=== PATIENT | female | born 1990 | race Caucasian/White ===

== ENCOUNTER → 2018-01-12 | Outpatient (CLI) | payer OTHER | END | disposition home or self-care (01) | LOC: C.LAB1850 11:13 | PROVIDERS: ATTEND Obstetrics & Gynecology | DX: Z31.69 Encounter for other general counseling and advice on procreation (principal) ==

== ENCOUNTER 2019-01-05 19:43 | Inpatient (IN) ==
[2019-01-05] MEDS ORDERED: OXYTOCIN 30 UNITS/500 ML BAG IV PRN ×2 (20:32→22:47)
[2019-01-05] MEDS ORDERED: LACTATED RINGER'S 1,000 ML IV PRN ×2 (20:32→22:47)
--- NOTE | 2019-01-05 20:45 | History & Physical Report ---
Date of Service January 05, 2019 Assessment & Plan (1) 40 weeks gestation of : Admit to L&D, labs/IV/EFM. OK for epidural when she desires. She would like to walk the halls to see if labor sets in, but if not is agreeable to pitocin after about 2 hours. History of Present Illness Chief Complaint: SROM Primary Care Provider: NO PCP 28yo @ 40 4/7 presents with leaking of mucus-like discharge all day today. Presents for r/o rupture of membranes. No vaginal bleeding, not really feeling ctx. + movement. uncomplicated. Allergies Allergy/AdvReac Type Severity Reaction Status Date / Time No Known Allergies Allergy Verified 01/05/19 20:01 Home Medications Home Medications Medication Instructions Recorded Confirmed Type 1 tab DAILY 01/05/19 01/05/19 History diphenhydramine HCl [Unisom 1 tab PO DAILY 01/05/19 01/05/19 History Sleepgels] Patient History Medical History Chilblain [place] teeth removed Social History Preferred Language: Tajik Beliefs That Will Affect Care: None marital status: Current Living Situation: Spouse Other Information That Helps Us Care for You: No Feels Safe at Home: Yes Safety Concerns: Feels Safe At This Time Smoking Status: Never smoker Hx Alcohol Use: No Hx Substance Use: No Review of Systems All systems reviewed & are unremarkable except as noted in HPI & below Physical Exam Vital Signs (Past 24 Hours): Last Vital Signs Temp 37.1 C 01/05/19 20:10 Pulse 94 H 01/05/19 20:10 Resp 18 01/05/19 20:10 BP 134/68 01/05/19 20:10 Physical Exam: Gen: AAOx3 NAD CV: RRR L: CTAB Abd: soft, gravid, NTTP Ext: no edema SVE 2-3/80/-2 Sterile spec exam: SROM for copious clear fluid upon insertion of speculum FHT Cat 1, [place] Q 3-4 min (not feeling these)
[2019-01-05 20:56] LABS: Hematocrit (blood only) 33.4 % (37-47); Hemoglobin 11.1 g/dL (12.0-16.0); Mean Corpuscular Volume 87.9 fL (80-100); Mean Platelet Volume 11.6 fL (7.4-10.4); Platelet Count 160 K/uL (130-400); RDW Coefficient of Variation 14.5 % (11.5-14.5); RDW Standard Deviation 46.8 fL (36.4-46.3); White Blood Count 12.84 K/uL (4.8-10.8)
[2019-01-05 20:59] LABS: Mean Corpuscular Hgb Conc 33.2 g/dL (32-36)
--- NOTE | 2019-01-05 22:49 | Obstetrical Progress Note ---
Date of Service January 05, 2019 Subjective Patient has walked the hallways for about 2 hours, not feeling much increase in pressure or ctx. FHT Cat 1 [place] Q 2-3 min SVE 3-4/90/-2 Discussed with patient - will start pitocin to augment labor. She is agreeable to this plan. OK for epidural when she desires. Physical Exam Vital Signs (Past 24 Hours): Last Vital Signs Temp 37.1 C 01/05/19 20:10 Pulse 94 H 01/05/19 20:10 Resp 18 01/05/19 20:10 BP 134/68 01/05/19 20:10
[2019-01-06] MEDS ORDERED: BUPIVACAINE 0.25% 30 ML VIAL ONE (01:54)
[2019-01-06] MEDS ORDERED: ePHEDrine sulfate 50 MG/ML AMP ONE (01:55)
[2019-01-06] MEDS ORDERED: fentaNYL 2MCG/ML ROPIV 1.25MG/ML 100 ML BAG EPI ONE (01:55)
[2019-01-06] MEDS ORDERED: fentaNYL citrate 100 MCG/2 ML VIAL ONE ×2 (01:55→16:44)
--- NOTE | 2019-01-06 02:05 | Anesthesiology Consultation ---
Date of Service January 06, 2019 Assessment & Plan Chart Review Chart Review: Patient NOT seen in Pre Admission Testing and Acceptable Risk for Labor Epidural Consults Requested none ASA ASA2 Proposed Anesthesia Anesthesia Type: Labor Epidural Risk / Benefits Reviewed With: PT / POA / Parent / Guardian, Accepts Plan and Informed Consent Obtained NPO Date Last Intake of Fluids: 01/05/19 Time Last Intake of Fluids: 18:30 Date Last Intake of Solids: 01/05/19 Time Last Intake of Solids: 18:30 History Height/Weight Height: 5 ft 6 in Weight: 99.159 kg Allergies Allergy/AdvReac Type Severity Reaction Status Date / Time No Known Allergies Allergy Verified 01/05/19 20:01 Medications Home Medications Medication Instructions Recorded Confirmed Last Taken 1 tab DAILY 01/05/19 01/05/19 01/04/19 20:00 diphenhydramine HCl [Unisom 1 tab PO DAILY 01/05/19 01/05/19 01/04/19 20:00 Sleepgels] Active Medications Generic Name Dose Route Start Last Admin Trade Name Freq PRN Reason Stop Dose Admin Lactated Ringer's 1,000 mls @ 999 mls/hr 01/05/19 20:32 01/05/19 23:15 Lr IV 02/04/19 20:31 125 mls/hr .Q1H1M PRN Infusion (Pre-Anesthesia) Oxytocin 30 units in 500 mls @ 5 mls/hr 01/05/19 22:47 01/06/19 01:00 Pitocin IV 01/07/19 22:46 0.3 units/hr .Q24H PRN 5 mls/hr Labor Induction/Augmentation Titration Protocol 0.3 UNITS/HR Past Medical History Medical History Anemia Chilblain GERD (gastroesophageal reflux disease) Obesity [place] teeth removed Past Anesthesia History No Hx of Anesthesia Complications and No Family Hx of Anesthesia Complications History of PONV No Motion Sickness Screening History of Motion Sickness: No Social History Smoking Status: Never smoker Hx Alcohol Use: No Hx Substance Use: No Exercise / Class Metabolic Activity II 4-5 Yardwork/Stairs/Walk up hill Physical Exam Vital Signs Last Vital Signs Temp 37.0 C 01/05/19 23:44 Pulse 91 H 01/06/19 01:58 Resp 18 01/05/19 20:10 BP 126/71 01/06/19 01:57 Pulse Ox 99 01/06/19 01:58 Constitutional + obese ENMT Mouth: no dentition abnormality Neck normal visual inspection and trachea midline; neck extension not limited Respiratory normal respiratory effort Auscultation: lungs clear to auscultation bilaterally Cardiovascular Rate/Rhythm: regular rate and regular rhythm Heart Sounds: no murmur Musculoskeletal Spine: lumbar spine normal to inspection; normal cervical ROM Neurologic moves all extremities Motor/Sensory: no sensory deficit Psychiatric Orientation: alert and oriented x 3 Testing Laboratory Results 01/05/19 20:49
[2019-01-06] MEDS ORDERED: ePHEDrine sulfate 50 MG/ML AMP IV PRN (02:45)
[2019-01-06] MEDS ORDERED: LACTATED RINGER'S 1,000 ML IV PRN (02:45)
[2019-01-06] MEDS ORDERED: NALOXONE HCL 0.4 MG/1 ML VIAL/CARP IV PRN (02:45)
[2019-01-06] MEDS ORDERED: PROMETHAZINE HCL 25 MG in SODIUM CHLORIDE 0.9% 50 ML IV PRN (02:45)
[2019-01-06] MEDS ORDERED: NALOXONE HCL 1 MG in SODIUM CHLORIDE 0.9% 1000ML 1,000 ML IV PRN (02:45)
[2019-01-06] MEDS ORDERED: DiphenhydrAMINE HCL 50 MG/ML VIAL IV PRN (02:45)
[2019-01-06] MEDS ORDERED: ONDANSETRON INJ 2 MG/ML 2 ML VIAL IV PRN (02:45)
[2019-01-06] MEDS ORDERED: NALBUPHINE HCL INJ 10 MG/ML AMP IV PRN (02:45)
[2019-01-06] MEDS: fentaNYL 2MCG/ML ROPIV 1.25MG/ML 100 ML BAG EPI PRN ×5 (06:28→16:01)
[2019-01-06] MEDS ORDERED: Nursing to Pharmacy Communication ONE (06:38)
[2019-01-06] MEDS: LACTATED RINGER'S 1,000 ML IV SCH ×2 (07:32→13:05)
--- NOTE | 2019-01-06 10:47 | Obstetrical Progress Note ---
Date of Service January 06, 2019 Assessment & Plan (1) 40 weeks gestation of : 26yo G1 at 40.5. Labor - Cat 1 - Labor: progressing. Continue pitocin - Vitals wnl - Pain controlled with epidural Subjective Patient doing well Physical Exam Vital Signs (Past 24 Hours): Last Vital Signs Temp 37.1 C 01/06/19 09:33 Pulse 96 H 01/06/19 10:39 Resp 20 01/06/19 09:33 BP 126/94 01/06/19 10:12 Pulse Ox 94 01/06/19 10:39 Genitourinary: Manual OB Exam: + cervical dilation 9 cm, + cervical effacement 100% and + station + 1 OB Exam Monitor Tracing: + category I
[2019-01-06] MEDS ORDERED: AMPICILLIN 2,000 MG in SODIUM CHLOR 0.9% AD-VAN 100 ML IV ONE (15:10)
--- NOTE | 2019-01-06 15:19 | Obstetrical Progress Note ---
Date of Service January 06, 2019 Assessment & Plan (1) 40 weeks gestation of : (2) PROM (premature rupture of membranes): will begin 2nd stage. apparently pushed with nurse and too numb, epidural rate decreased (3) Chorioamnionitis: since my exam temp >38.0, will treat as presumed chorio with amp and gent. per nurse pt thought she was rupture yesterday at 930am, was only seen and admitted as rom 12hr later. see admitting md note. Subjective pt seen as felt some urge to push Physical Exam Vital Signs (Past 24 Hours): Last Vital Signs Temp 38.1 C H 01/06/19 14:53 Pulse 125 H 01/06/19 15:13 Resp 20 01/06/19 13:43 BP 124/60 01/06/19 14:12 Pulse Ox 100 01/06/19 15:13 Constitutional: WD/WN, vitals as above Genitourinary: Manual OB Exam: + cervical dilation 10 cm, + cervical effacement 100% and + station + 2 OB Exam Monitor Tracing: + external FHT monitor used (160 mod variability, +accels), + external uterine monitor used (q2-3), + category I and + normal FHT variability
[2019-01-06] MEDS ORDERED: ACETAMINOPHEN 325 MG TAB PO STA (15:32)
[2019-01-06] MEDS ORDERED: ACETAMINOPHEN 325 MG TAB ONE (15:34)
[2019-01-06] MEDS ORDERED: GENTAMICIN CONSULT ACTIVE PRN (16:41)
[2019-01-06] MEDS ORDERED: LIDOCAINE HCL 2% MPF (LOCAL) 5 ML VIAL INFIL ONE (16:45)
--- NOTE | 2019-01-06 16:58 | Anesthesiology Progress Note ---
Date of Service January 06, 2019 Pt in active labor with epidural infusion. Fully dilated and having pain with contractions. Asked by claims counsel to increase analgesia. [id number] 1% plus fentanyl 100mcg given to epidural catheter. VSS prior to and after epidural bolus. Physical Exam Vital Signs Last Vital Signs Temp 37.7 C H 01/06/19 16:15 Pulse 114 H 01/06/19 16:49 Resp 22 01/06/19 16:15 BP 124/66 01/06/19 16:15 Pulse Ox 92 01/06/19 16:49 Results & Data Medications Administered Ephedrine Sulfate (Ephedrine Sulfate) 10 mg IV Q5M PRN PRN Reason: Hypotension Stop: 01/07/19 02:44 Last Admin: 01/06/19 02:35 Dose: 10 mg Documented by: [id number] Lactated Ringer's (Lr) 1,000 mls @ 999 mls/hr IV .Q1H1M PRN PRN Reason: (Pre-Anesthesia) Stop: 02/04/19 20:31 Last Infusion: 01/05/19 23:15 Dose: 125 mls/hr Documented by: [id number] Admin: 01/05/19 22:51 Dose: 999 mls/hr Documented by: [id number] Lactated Ringer's (Lr) 1,000 mls @ 125 mls/hr IV .Q8H ROSELYN Stop: 01/07/19 20:44 Last Admin: 01/06/19 13:05 Dose: 125 mls/hr Documented by: [id number] Infusion: 01/06/19 13:05 Dose: 125 mls/hr Documented by: [id number] Admin: 01/06/19 07:32 Dose: 125 mls/hr Documented by: [id number] Oxytocin (Pitocin) 30 units in 500 mls @ 13 mls/hr IV .Q24H PRN; Protocol PRN Reason: Labor Induction/Augmentation Stop: 01/07/19 22:46 Last Titration: 01/06/19 15:23 Dose: 0.78 units/hr, 13 mls/hr Documented by: [id number] Titration: 01/06/19 13:47 Dose: 0.66 units/hr, 11 mls/hr Documented by: [id number] Titration: 01/06/19 07:09 Dose: 0.54 units/hr, 9 mls/hr Documented by: [id number] Titration: 01/06/19 03:30 Dose: 0.54 units/hr, 9 mls/hr Documented by: [id number] Titration: 01/06/19 03:00 Dose: 0.42 units/hr, 7 mls/hr Documented by: [id number] Titration: 01/06/19 01:00 Dose: 0.3 units/hr, 5 mls/hr Documented by: [id number] Titration: 01/06/19 00:30 Dose: 0.18 units/hr, 3 mls/hr Documented by: [id number] Admin: 01/05/19 23:59 Dose: 0.06 units/hr, 1 mls/hr Documented by: [id number] Cosigned by: [id number] Ropivacaine (Epidural (L&D)) 100 ml EPI PRN PRN; Protocol PRN Reason: Pain R/T Labor Stop: 01/07/19 02:44 Last Admin: 01/06/19 16:01 Dose: 195 ml Documented by: [id number] Cosigned by: [id number] Admin: 01/06/19 14:51 Dose: 100 ml Documented by: [id number] Cosigned by: [id number] Admin: 01/06/19 10:00 Dose: 100 ml Documented by: [id number] Cosigned by: [id number] Admin: 01/06/19 07:05 Dose: 56 ml Documented by: [id number] Cosigned by: [id number] Admin: 01/06/19 06:28 Dose: 51.7 ml Documented by: [id number] Cosigned by: [id number]
[2019-01-06] MEDS ORDERED: GENTAMICIN SULFATE 150 MG in DEXTROSE 5% 100 ML IV ONE (17:00)
[2019-01-06] MEDS ORDERED: METHYLERGONOVINE MALEATE 0.2 MG/ML AMP ONE (18:50)
[2019-01-06] MEDS ORDERED: miSOPROStol 200 MCG TAB ONE (18:52)
[2019-01-06] MEDS ORDERED: HYDROCORTISONE ACETATE 25 MG SUPP PR PRN (19:02)
[2019-01-06] MEDS ORDERED: BENZOCAINE 20% AER SPR 82.5 GM CAN EXT PRN (19:02)
[2019-01-06] MEDS ORDERED: OXYTOCIN 30 UNITS/500 ML BAG IV PRN (19:02)
[2019-01-06] MEDS ORDERED: SUPERCREAM 0.870% 15 GM JAR EXT PRN (19:02)
[2019-01-06] MEDS ORDERED: ACETAMINOPHEN 325 MG TAB PO PRN (19:02)
[2019-01-06] MEDS ORDERED: DIPHTHERIA/TETANUS/PERTUSSIS 0.5 ML SYR/VIAL IM ONE (19:02)
[2019-01-06] MEDS ORDERED: miSOPROStol 200 MCG TAB PR ONE (19:02)
[2019-01-06] MEDS ORDERED: BISACODYL 10 MG SUPP PR PRN (19:02)
[2019-01-06 19:23] LABS: Base Excess Cord Venous Blood -2.9 mEq/L (-7.7-1.9); Cord Venous Blood HCO3 22 mmol/L (18.4-26.8); Cord Venous Blood PCO2 37 mmHg (30.4-57.2); Cord Venous Blood PO2 33 mmHg (14.1-43.3); Cord Venous Blood pH 7.38 (7.20-7.44)
[2019-01-06 19:33] LABS: Base Excess Cord Arterial Bld -3.2 mEq/L (-9-1.8); CO2 Cord Arterial Blood 36 mmHg (39.1-73.5); HCO3 Cord Arterial Blood 21 mmol/L (19.7-28.5); pH Cord Arterial Blood 7.38 (7.1-7.38)
--- NOTE | 2019-01-06 21:28 | Anesthesia Procedure Note ---
Date of Service January 06, 2019 Anesthesia Post Epidural Note Vital Signs Vital Signs: Temp Pulse Resp BP Pulse Ox 36.7 C 105 H 18 104/59 L 97 01/06/19 19:12 01/06/19 21:07 01/06/19 20:07 01/06/19 21:07 01/06/19 18:19 Pain Intensity Upper Abdomen: Pain Intensity: 3 Notes Mental Status: alert / awake / arousable and participated in evaluation Nausea / Vomiting: adequately controlled Pain: adequately controlled Airway Patency, RR, SpO2: stable & adequate BP & HR: stable & adequate Hydration State: stable & adequate Neuraxial Anesthesia: was administered and sensory block is resolving Anesthetic Complications: no major complications apparent and Pt Satisfied with anesthetic care Epidural: Removed without complications and With tip intact
--- NOTE | 2019-01-06 22:12 | Delivery Summary ---
DATE OF OPERATION: 01/06/2019 PROCEDURE: Normal spontaneous vaginal delivery with bilateral periurethral laceration repairs. SURGEON: Kofi Calhoun MD PREOPERATIVE DIAGNOSES: 1. Single intrauterine at 40 weeks 4 days gestational age. 2. Spontaneous rupture of membranes. POSTOPERATIVE DIAGNOSES: 1. Single intrauterine at 40 weeks 4 days gestational age. 2. Spontaneous rupture of membranes. 3. Chorioamnionitis, and delivered. ESTIMATED BLOOD LOSS: 400 mL. DRAINS: Straight cath after delivery. URINE OUTPUT: 500 mL via straight catheterization. COMPLICATIONS: None. FINDINGS: Viable female infant with Apgars of 7 and 9 at 1 and 5 minutes respectively and weight pending. INDICATIONS: Ms. Jaime is a 28-year-old G1, P0 at 40 weeks 5 days gestational age, who presented with rupture of membranes on morning of admission. Upon discussion later, the patient does report some discharge earlier at 9:00 a.m. the previous day. However, she is unsure if she was ruptured at that time. The patient was initially found to be 2 cm dilated, 80% effaced, and -2 station. The patient was requested a 2-hour ashu period to allow for spontaneous labor. However, upon reevaluation, the patient was noted to have no significant progression and was started on oxytocin per regular protocol. The patient later received an epidural for anesthesia. The patient developed a maternal fever with tachycardia and was diagnosed with chorioamnionitis and started on antibiotics soon after she was found to be complete. The patient then began to push, then pushed for a little over 3 hours before delivery. DESCRIPTION OF PROCEDURE: The patient progressed to 10 cm dilated, 100% effaced, +2 station, pushed over intact perineum with epidural anesthesia and delivered a viable female infant with weight and Apgars as noted above. Head of delivered in ALEJANDRINA position restituted to left transverse. No nuchal cord was noted. The anterior shoulder was delivered easily. There was some difficulty getting the posterior shoulder around the perineum; however, this delivery was effected with sweeping the posterior shoulder. The remainder of the body and shoulders quickly followed. was delivered to the maternal abdomen, was noted to be vigorous soon after delivery: A 1-minute delayed cord clamping was initiated where the cord was doubly clamped and cut. The remained on the maternal abdomen. Attention was then turned to delivery. The placenta was delivered intact with 3-vessel cord with uterine massage and cord traction. There was noted to be a cord avulsion; however, the placenta was noted to be largely in the vagina at that time with only a small portion still attached to the uterus. That external portion within the vagina was able to be grasped and delivery of placenta was able to be achieved without manual extraction. Attention was then turned to the perineum, vagina and cervix for inspection. There was noted to be bilateral periurethral lacerations which were repaired with 3-0 Vicryl with interrupted stitch. Needle, sponge, and instrument counts were correct at the completion of the case. I attest to the content of the Intraoperative Record and any orders documented therein. Any exceptions are noted below. MTDD
[2019-01-06] MEDS: IBUPROFEN 600 MG TAB PO PRN (22:14)
[2019-01-07] MEDS: IBUPROFEN 600 MG TAB PO PRN ×5 (03:01→20:36)
--- NOTE | 2019-01-07 07:16 | Obstetrical Progress Note ---
Date of Service <Favio DO Leonid - Last Filed: 01/07/19 07:16> January 07, 2019 Assessment & Plan <Favio DO Leonid - Last Filed: 01/07/19 07:16> (1) Spontaneous vaginal delivery: 28 y/o with at 40.5 weeks with bilat periurethral tears - continue with post- care (2) 40 weeks gestation of : (3) PROM (premature rupture of membranes): (4) Chorioamnionitis: temp >38.0, treated as presumed chorio with amp and gent. per nurse pt thought she was rupture yesterday at 930am; with possible rom and seen here for admission 12 hours s/p rom 12hr later Subjective <Favio DO Leonid - Last Filed: 01/07/19 07:16> Ambulation: ambulating normally Voiding: no voiding problems Passing Gas:: Yes Diet Tolerance:: regular diet Lochia:: Small Feeding Type:: breast feeding Karen states she is doing well today, no acute events overnight. She denies fever, chills, chest pains, shortness of breath, nausea, vomiting. Physical Exam <Favio DO Leonid - Last Filed: 01/07/19 07:16> Vital Signs (Past 24 Hours) Last Vital Signs Temp 36.8 C 01/07/19 03:30 Pulse 86 01/07/19 03:30 Resp 20 01/07/19 03:30 BP 98/55 L 01/07/19 03:30 Pulse Ox 100 01/06/19 23:35 Constitutional WD/WN, vitals as above cooperative and comfortable Eyes + anicteric sclerae and EOM intact bilaterally Neck normal visual inspection and trachea midline Respiratory normal respiratory effort, lungs clear to auscultation Cardiovascular Rate/Rhythm: regular rate and regular rhythm Heart Sounds: no murmur Gastrointestinal (Abdomen) Percussion/Palpation: abdomen nontender uterine fundus if firm, non-tender, 2cm inferior to umbilicus Musculoskeletal Head/Neck/Chest: normocephalic and head atraumatic Skin no rashes, warm and dry Neurologic moves all extremities and awake Psychiatric A+Ox3, euthymic affect Results & Data <Favio Jaquez DO - Last Filed: 01/07/19 07:16> Laboratory Results Laboratory Results - last 24 hr 01/06/19 01/06/19 18:20 18:20 Cord ABG pH 7.38 Cord ABG pCO2 36 L Cord ABG pO2 34.0 H Cord ABG HCO3 21 Cord ABG Base Excess -3.2 Cord ABG O2 Sat 69.0 H Cord VBG pH 7.38 Cord VBG pCO2 37 Cord VBG pO2 33 Cord VBG HCO3 22 Cord VBG Base Excess -2.9 Cord VBG O2 Sat 69.0 H Barometric Pressure 732.5 732.4 Blood Gas Comments STYLES INFANT A Medications Administered Benzocaine (Dermoplast Pain Relieving [place]) 1 appln EXT PRN PRN PRN Reason: Perineal Discomfort Stop: 02/05/19 19:01 Last Admin: 01/06/19 22:15 Dose: 82.5 appln Documented by: [id number] Lactated Ringer's (Lr) 1,000 mls @ 125 mls/hr IV .Q8H ROSELYN Stop: 01/07/19 20:44 Last Admin: 01/06/19 13:05 Dose: 125 mls/hr Documented by: [id number] Infusion: 01/06/19 13:05 Dose: 125 mls/hr Documented by: [id number] Admin: 01/06/19 07:32 Dose: 125 mls/hr Documented by: [id number] Ibuprofen (Motrin) 600 mg PO Q4H PRN PRN Reason: Pain/SERRATO/Cramping/Fever Stop: 02/05/19 19:01 Last Admin: 01/07/19 06:37 Dose: 600 mg Documented by: [id number] Admin: 01/07/19 03:01 Dose: 600 mg Documented by: [id number] Admin: 01/06/19 22:14 Dose: 600 mg Documented by: [id number] <Kofi Calhoun MD - Last Filed: 01/17/19 18:18> Co-Signing Physician Notes Patient evaluated and agree findings and plan
[2019-01-07 07:23] LABS: Hemoglobin 8.6 g/dL (12.0-16.0); Mean Corpuscular Hgb Conc 33.1 g/dL (32-36); Mean Corpuscular Volume 87.8 fL (80-100); Mean Platelet Volume 10.8 fL (7.4-10.4); Platelet Count 127 K/uL (130-400); RDW Standard Deviation 48.1 fL (36.4-46.3); Red Blood Count 2.96 M/uL (4.2-5.4); White Blood Count 17.06 K/uL (4.8-10.8)
[2019-01-07] MEDS: PRENATAL VITAMIN 1 TAB PO SCH (09:45)
[2019-01-07] MEDS: DOCUSATE SODIUM 100 MG CAP PO SCH ×2 (09:45→20:36)
[2019-01-07] MEDS ORDERED: BISACODYL 5 MG TABEC PO SCH (20:00)
[2019-01-08] MEDS: IBUPROFEN 600 MG TAB PO PRN ×3 (01:14→11:21)
--- NOTE | 2019-01-08 08:05 | Obstetrical Progress Note ---
Date of Service January 08, 2019 Assessment & Plan (1) 40 weeks gestation of : (2) PROM (premature rupture of membranes): (3) Chorioamnionitis: (4) Spontaneous vaginal delivery: doing well. ready for d/c home. instructions reviewed. f/u 6wks pp check. Day #:: 2 Subjective Ambulation: ambulating normally Voiding: no voiding problems Diet Tolerance:: regular diet Lochia:: Small Feeding Type:: breast feeding doing well. pumping and feeding. ready to go home Physical Exam Vital Signs (Past 24 Hours) Last Vital Signs Temp 36.5 C 01/07/19 23:15 Pulse 93 H 01/07/19 23:15 Resp 20 01/07/19 23:15 BP 106/62 01/07/19 23:15 Pulse Ox 100 01/06/19 23:35 Constitutional WD/WN, vitals as above Respiratory normal respiratory effort, lungs clear to auscultation Cardiovascular Rate/Rhythm: regular rate and regular rhythm Gastrointestinal (Abdomen) Inspection/Auscultation: abdomen normal to inspection Percussion/Palpation: abdomen soft fundus firm 2 cm below umbilicus Musculoskeletal nt calves. tr edema Psychiatric A+Ox3, euthymic affect
[2019-01-08] MEDS: PRENATAL VITAMIN 1 TAB PO SCH (09:21)
[2019-01-08] MEDS: DOCUSATE SODIUM 100 MG CAP PO SCH (09:21)
== END 2019-01-08 15:45 | disposition home or self-care (01) | DRG 807 ==
LOC: OPB 19:43 → 4S1 19:44 → 4S2 01-06 22:19
DX: Z3A.40 40 weeks gestation of pregnancy; Z37.0 Single live birth; O41.1230 Chorioamnionitis, third trimester, not applicable or unspecified; O48.0 Post-term pregnancy; O70.0 First degree perineal laceration during delivery